=== PATIENT | female | born 1995 | race Caucasian/White ===

== ENCOUNTER 2023-10-23 15:51 | Emergency (ER) | payer SELFPAY ==
[2023-10-23 16:09] VITALS: BP 151/72; PULSE 93; RESP 18; TEMP 98; O2SAT 97
[2023-10-23] MEDS ORDERED: CLEOCIN 150 MG CAPSULE ONE (16:16)
--- NOTE | 2023-10-23 16:16 | ERPHSYRPT ---
- History of Present Illness Time Seen by Provider: 10/23/23 16:10 Source: patient Exam Limitations: no limitations Patient Subjective Stated Complaint: C/O "infected molar" to left side of mouth. Pain #4 right now, states increased to a #10 when trying to eat. Triage Nursing Assessment: Patient ambulated back to ER without difficulties. She is alert and oriented. No SOB. No cough. Left side of face/mouth is swollen. Patient has a hard time opening mouth wide; states causes pain to open wide. Obvious other cavities noted in mouth. Physician History: 28-year-old female presents to our ED with swelling to her left lower molar tooth #18. The area is swollen. Symptoms started yesterday. Symptoms are worse today. No trauma no fever. No headache. Pain is well localized. No radiation. Pain worse with mastication pain improved with rest. No difficulty swallowing breathing or drinking. Patient otherwise feels well. Patient advised that she is currently 4 months . Patient also advised that she is a current smoker but is now cutting down to half pack per day because of her . Smoking cessation discussed. Patient also reports that she does not have money to pay for her antibiotics. 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 She declined a work note. Patient voices no other complaints or concerns at this time. Portions of this note were created with voice recognition technology. There may be grammatical, spelling, punctuation or sound alike errors Timing/Duration: yesterday Severity: moderate Modifying Factors: Improves With: other (Mastication, palpation) Associated Symptoms: denies symptoms Allergies/Adverse Reactions: Penicillins Allergy (Verified 10/23/23 15:58) Tightness of Throat Home Medications: Pnv No.103/Folic/Om3s/Fish Oil [ Gummies] 1 gum PO DAILY 10/23/23 [History] Hx Tetanus, Diphtheria Vaccination/Date Given: Yes Hx Influenza Vaccination/Date Given: No Hx Pneumococcal Vaccination/Date Given: No Immunizations Up to Date: Yes Travel Risk - International Travel Have you traveled outside of the country in past 3 weeks: No - Coronavirus Screening Are you exhibiting any of the following symptoms?: No Close contact with a COVID-19 positive Pt in past 14-21 Days: No - Vaccine Status Have you recieved a Covid-19 vaccination: No - Review of Systems Constitutional: No Symptoms, No Fever, No Chills Eyes: No Symptoms Ears, Nose, & Throat: No Symptoms Respiratory: No Symptoms, No Cough, No Dyspnea Cardiac: No Symptoms, No Chest Pain, No Edema, No Syncope Abdominal/Gastrointestinal: No Symptoms, No Abdominal Pain, No Nausea, No Vomiting, No Diarrhea Genitourinary Symptoms: No Symptoms, No Dysuria Musculoskeletal: No Symptoms, No Back Pain, No Neck Pain Skin: No Symptoms, No Rash Neurological: No Symptoms, No Dizziness, No Focal Weakness, No Sensory Changes Psychological: No Symptoms Endocrine: No Symptoms Hematologic/Lymphatic: No Symptoms Immunological/Allergic: No Symptoms All Other Systems: Reviewed and Negative - Past Medical History Pertinent Past Medical History: Yes Musculoskeletal History: Muscular Dystrophy - Past Surgical History Past Surgical History: Yes Female Surgical History: Section - Social History Smoking Status: Current every day smoker How long have you smoked: 20 years Exposure to second hand smoke: No Drug Use: none Patient Lives Alone: No - Female History Hx Now: Yes Gestational Age: 4 months - Nursing Vital Signs Nursing Vital Signs: Initial Vital Signs Temperature 98 F 10/23/23 16:00 Pulse Rate 93 H 10/23/23 16:00 Respiratory Rate 18 10/23/23 16:00 Blood Pressure 151/72 10/23/23 16:00 O2 Sat by Pulse Oximetry 97 10/23/23 16:00 Pain Scale Pain Intensity 4 - Physical Exam General Appearance: no apparent distress, alert Eye Exam: PERRL/EOMI, eyes nml inspection Ears, Nose, Throat Exam: normal ENT inspection, TMs normal, pharynx normal, moist mucous membranes, other (Tooth #18 has adjacent gingival swelling tenderness. No sublingual masses. No oral cellulitis. Patent airway. No stridor. No respiratory distress or compromise.) Neck Exam: normal inspection, non-tender, supple, full range of motion Respiratory Exam: normal breath sounds, lungs clear, airway intact, No respiratory distress Cardiovascular Exam: regular rate/rhythm, normal heart sounds, normal peripheral pulses Gastrointestinal/Abdomen Exam: soft, normal bowel sounds, No tenderness, No mass Back Exam: normal inspection, normal range of motion, No CVA tenderness, No vertebral tenderness Extremity Exam: normal inspection, normal range of motion, pelvis stable Neurologic Exam: alert, oriented x 3, cooperative, normal mood/affect, sensation nml, No motor deficits Skin Exam: normal color, warm, dry, No rash Lymphatic Exam: No adenopathy SpO2 Interpretation: normal SpO2: 97 O2 Delivery: Room Air - Course Nursing assessment & vital signs reviewed: Yes Ordered Tests: Medication Summary Discontinued Medications Generic Name Dose Route Start Last Admin Trade Name Brenda PRN Reason Stop Dose Admin Acetaminophen 1,000 mg 10/23/23 16:20 Acetaminophen 500 Mg Tablet PO 10/23/23 16:21 STAT STA Clindamycin HCl Confirm 10/23/23 16:16 Clindamycin Hcl 150 Mg Capsule Administered 10/23/23 16:17 Dose 300 mg .ROUTE .STK-MED ONE Clindamycin HCl 300 mg 10/23/23 16:19 Clindamycin Hcl 150 Mg Capsule PO 10/23/23 16:20 STAT ONE Sulindac 300 mg 10/23/23 16:08 10/23/23 16:19 Sulindac 150 Mg Tablet PO 10/23/23 16:09 Not Given ONCE STA - Progress Progress: improved Progress Note: 28-year-old female presents to our ED with dental pain. Physical exam reveals dental abscess at tooth #18. Patient is currently 4 months . She is allergic to penicillin. Patient received an oral dose of clindamycin. She also received a 1 g dose of acetaminophen for pain control. A prescription for clindamycin was forwarded to patient's pharmacy. Patient advised that she currently does not have any money to pay for her antibiotics. Patient received $20 from our [employer] tinajero fund. Portions of this note were created with voice recognition technology. There may be grammatical, spelling, punctuation or sound alike errors No critical care time Complex of data reviewed is low. Diagnosis made based on history and physical examination. No specialized testing ordered Risk of complication and or risk of morbidity/mortality of patient management is moderate. A prescription for clindamycin was forwarded to patient's pharmacy. Vital stable. Time spent to discharge patient is approximately 15 minutes. Plan of care established for shared decision making. No social determinants of health present impede follow-up. Portions of this note were created with voice recognition technology. There may be grammatical, spelling, punctuation or sound alike errors 10/23/23 16:23 Counseled pt/family regarding: diagnosis, need for follow-up - Departure Departure Disposition: Home Clinical Impression: Pain, dental, Dental abscess Condition: Stable Critical Care Time: No Referrals: JACINTA AVINA MD [Primary Care Provider] - Follow up/PCP as directed Additional Instructions: Discharge/Care Plan HUONG ROSAS was seen on 10/23/23 in the Emergency Room. The patient was counseled regarding Diagnosis,Lab results, Imaging studies, need for follow up and when to return to the Emergency Room. Prescriptions given: Discharge Note I have spoken with the patient and/or caregivers. I have explained the patient's condition, diagnosis and treatment plan based on the information available to me at this time. I have answered the patient's and/or caregiver's questions and addressed any concerns. The patient and/or caregivers have as good understanding of the patient's diagnosis, condition and treatment plan as can be expected at this point. The vital signs have been stable. The patient's condition is stable and appropriate for discharge from the emergency department. The patient will pursue further outpatient evaluation with the primary care physician or other designated or consulting physician as outlined in the discharge instructions. The patient and/or caregivers are agreeable to this plan of care and follow-up instructions have been explained in detail. The patient and/or caregivers have received these instruction. The patient/and or caregivers are aware that any significant change in condition or worsening of symptoms should prompt an immediate return to this or the closest emergency department or call 911. Prescriptions: Clindamycin HCl 150 mg [Cleocin 150 mg Capsule] 2 cap PO QID #56 cap
[2023-10-23] MEDS: SULINDAC 150 MG PO STA (16:19)
[2023-10-23] MEDS ORDERED: TYLENOL EXTRA STRENGTH 500 MG ONE (16:20)
[2023-10-23] MEDS: CLEOCIN 150 MG CAPSULE PO ONE (16:21)
[2023-10-23] MEDS: TYLENOL EXTRA STRENGTH 500 MG PO STA (16:21)
== END 2023-10-23 16:42 | disposition home or self-care (01) ==
LOC: ED 15:51
DX: K04.7 Periapical abscess without sinus (principal); K08.89 Other specified disorders of teeth and supporting structures; Z33.1 Pregnant state, incidental; Z28.310 Unvaccinated for COVID-19; Z72.0 Tobacco use; Z59.9 Problem related to housing and economic circumstances, unspecified
CPT/HCPCS: 99282; A9270-GY